=== PATIENT | male | born 2000 | race American Indian/Alaskan Native ===

== ENCOUNTER 2021-11-27 17:56 | Emergency (ER) | payer OTHER ==
[2021-11-27] MEDS ORDERED: IPRATROPIUM 0.02% NEBU 2.5 ML IH ONE (19:14)
[2021-11-27] MEDS ORDERED: ALBUTEROL 2.5 MG/3 ML NEBU IH ONE (19:14)
[2021-11-27] MEDS ORDERED: methylPREDNISolone Sod Succinate 125 MG/2 ML INJ IM ONE (19:15)
--- NOTE | 2021-11-27 19:41 | XRay Report ---
CHEST 2 VIEWS INDICATION / CLINICAL INFORMATION: cough, dyspnea, asthma. COMPARISON: None available. FINDINGS: SUPPORT DEVICES: None. HEART / MEDIASTINUM: No significant abnormality. LUNGS / PLEURA: No significant pulmonary or pleural abnormality. No pneumothorax. ADDITIONAL FINDINGS: No significant additional findings. IMPRESSION: 1. No acute findings. Signer Name: Brayan Barkley MD Signed: 11/27/2021 7:37 PM Workstation Name: [id number]
--- NOTE | 2021-11-27 20:25 | Emergency Department Report ---
ED Shortness of Breath HPI - General Chief Complaint: Adult Asthma Stated Complaint: SOB/ASTHMA Source: EMS Mode of arrival: Stretcher Limitations: No Limitations - History of Present Illness Initial Comments: Patient is a 20-year-old -[place] male with history of asthma who presents to the ED with complaint of acute onset persistent chest tightness, persistent dry cough, shortness of breath, wheezing with nasal and sinus congestion for the last 3 days. Patient states that he has a history of asthma but has never had any asthma attack in over 6 years and therefore he does not have any bronchodilator medications at home. Patient states that for the last 3 days they have been calling the EMS crew who have responded each time and gives him nebulizer treatments which helped briefly but the symptoms have continued to be persistent despite the treatment at home by the EMS crew. Patient denies fever, chills, nausea and vomiting, dizziness, syncope, chest pain, abdominal pain, diarrhea, sore throat or diffuse body aches and pains. MD Complaint: shortness of breath, cough, "asthma attack", anxiety -: Sudden, days(s) (3) Severity: severe Pain Scale: 7 Quality: aching, other (Tightness) Consistency: constant Improves With: bronchodilators Worsens With: nothing Known History Of: asthma Context: recent URI, allergen exposure, smoke/fume exposure (Cigarette smoking) Associated Symptoms: cough Treatments Prior to Arrival: none - Related Data Home Oxygen Therapy: No Previous Rx's Medication Instructions Recorded Last Taken Type Albuterol Sulfate [Proventil Hfa] 1 - 2 puff IH Q6H PRN #1 inh 11/27/21 Unknown Rx Azithromycin [Zithromax Z-GISELA] 250 mg PO DAILY #6 tab 11/27/21 Unknown Rx Benzonatate [Tessalon Perles] 100 mg PO Q8HR #30 cap 11/27/21 Unknown Rx Cetirizine HCl [Zyrtec 10mg tab] 10 mg PO DAILY #30 tab 11/27/21 Unknown Rx Montelukast [Singulair] 10 mg PO QPM #30 tablet 11/27/21 Unknown Rx methylPREDNISolone [Medrol 4MG 4 mg PO DAILY #21 tab 11/27/21 Unknown Rx DOSEPAK (21 tabs)] Allergies Allergy/AdvReac Type Severity Reaction Status Date / Time No Known Allergies Allergy Verified 11/27/21 18:04 ED Review of Systems ROS: Stated complaint: SOB/ASTHMA Other details as noted in HPI Constitutional: denies: chills, fever Eyes: denies: eye pain, eye discharge, vision change ENT: congestion. denies: ear pain, throat pain Respiratory: cough, shortness of breath, wheezing Cardiovascular: denies: chest pain, palpitations Endocrine: no symptoms reported Gastrointestinal: denies: abdominal pain, nausea, diarrhea Genitourinary: denies: urgency, dysuria Musculoskeletal: denies: back pain, joint swelling, arthralgia Skin: denies: rash, lesions Neurological: denies: headache, weakness, paresthesias Psychiatric: denies: anxiety, depression Hematological/Lymphatic: denies: easy bleeding, easy bruising ED Past Medical Hx - Past Medical History Previous Medical History?: Yes Hx Asthma: Yes - Medications Home Medications: Home Medications Medication Instructions Recorded Confirmed Last Taken Type Albuterol Sulfate [Proventil Hfa] 1 - 2 puff IH Q6H PRN #1 inh 11/27/21 Unknown Rx Azithromycin [Zithromax Z-GISELA] 250 mg PO DAILY #6 tab 11/27/21 Unknown Rx Benzonatate [Tessalon Perles] 100 mg PO Q8HR #30 cap 11/27/21 Unknown Rx Cetirizine HCl [Zyrtec 10mg tab] 10 mg PO DAILY #30 tab 11/27/21 Unknown Rx Montelukast [Singulair] 10 mg PO QPM #30 tablet 11/27/21 Unknown Rx methylPREDNISolone [Medrol 4MG 4 mg PO DAILY #21 tab 11/27/21 Unknown Rx DOSEPAK (21 tabs)] ED Physical Exam - General Limitations: No Limitations General appearance: alert, in no apparent distress - Head Head exam: Present: atraumatic, normocephalic, normal inspection - Eye Eye exam: Present: normal appearance, PERRL, EOMI Pupils: Present: normal accommodation - ENT ENT exam: Present: normal orophraynx, mucous membranes moist, TM's normal bilaterally, normal external ear exam, other (Grossly congested nasal passages) - Neck Neck exam: Present: normal inspection, full ROM. Absent: tenderness - Respiratory Respiratory exam: Present: wheezes (Diffuse coarse wheezes throughout). Absent: normal lung sounds bilaterally, respiratory distress, rales, rhonchi, stridor, chest wall tenderness, accessory muscle use, decreased breath sounds, prolonged expiratory, other - Cardiovascular Cardiovascular Exam: Present: regular rate, normal rhythm, normal heart sounds. Absent: systolic murmur, diastolic murmur, rubs, gallop - GI/Abdominal GI/Abdominal exam: Present: soft, normal bowel sounds. Absent: tenderness, guarding, rebound, hyperactive bowel sounds, hypoactive bowel sounds, mass, bruit - Extremities Exam Extremities exam: Present: normal inspection, full ROM, normal capillary refill. Absent: tenderness - Back Exam Back exam: Present: normal inspection, full ROM. Absent: tenderness, CVA tenderness (R), CVA tenderness (L), muscle spasm, paraspinal tenderness, vertebral tenderness - Neurological Exam Neurological exam: Present: alert, oriented X3, CN II-XII intact, normal gait, reflexes normal - Psychiatric Psychiatric exam: Present: normal affect, normal mood, anxious - Skin Skin exam: Present: warm, dry, intact, normal color. Absent: rash ED Course Vital Signs 11/27/21 11/27/21 18:01 19:55 Temperature 98.5 F Pulse Rate 96 H Pulse Rate [ 75 Anterior] Respiratory 19 Rate Respiratory 16 Rate [Anterior] Blood Pressure 133/80 [Left] O2 Sat by Pulse 98 Oximetry ED Medical Decision Making - Radiology Data Radiology results: report reviewed, [place] [address] XRay Report Signed Patient: BULL CASTANEDA MR#: [id number] 4 : 2000 Acct:[id number] Age/Sex: 20 / M ADM Date: 11/27/21 Loc: ED Attending Dr: Ordering Physician: YVROSE KRUEGER Date of Service: 11/27/21 Procedure(s): XR chest routine 2V Accession Number(s): [id number] cc: YVROSE KRUEGER Fluoro Time In Minutes: CHEST 2 VIEWS INDICATION / CLINICAL INFORMATION: cough, dyspnea, asthma. COMPARISON: None available. FINDINGS: SUPPORT DEVICES: None. HEART / MEDIASTINUM: No significant abnormality. LUNGS / PLEURA: No significant pulmonary or pleural abnormality. No pneumothorax. ADDITIONAL FINDINGS: No significant additional findings. IMPRESSION: 1. No acute findings. Signer Name: Brayan Barkley MD Signed: 11/27/2021 7:37 PM Workstation Name: [id number] Transcribed By: SB Dictated By: BRAYAN BARKLEY MD Electronically Authenticated By: BRAYAN BARKLEY MD Signed Date/Time: 11/27/211936 DD/ 35 TD/TT: - Medical Decision Making This is a 20-year-old -[place] male with history of asthma who presents to the ED with complaint of acute onset persistent chest tightness, persistent dry cough, shortness of breath, wheezing with nasal and sinus congestion for the last 3 days. Patient states that he has a history of asthma but has never had any asthma attack in over 6 years and therefore he does not have any bronchodilator medications at home. Patient states that for the last 3 days they have been calling the EMS crew who have responded each time and gives him nebulizer treatments which helped briefly but the symptoms have continued to be persistent despite the treatment at home by the EMS crew. In the ED, patient is alert and oriented x3 and is not in any distress. Patient is hemodynamically stable with oxygen saturation of 98% on room air. Patient received nebulizer treatments in the ED with albuterol and ipratropium, Solu-Medrol 125 mg intramuscular injection. Chest x-ray showed no acute cardiopulmonary abnormalities or pneumonitis. On reevaluation, patient wheezing resolved, patient felt better, oxygen saturation ranged from 98 to 100% on room air. Patient was discharged home on medications and advised to follow-up with his primary care physician in 5 to 7 days for reevaluation or return to the ED immediately if symptoms get worse. - Differential Diagnosis Asthma; bronchitis; URI; pneumonia; reactive airway disease; Critical care attestation.: If time is entered above; I have spent that time in minutes in the direct care of this critically ill patient, excluding procedure time. ED Disposition Clinical Impression: Acute bronchitis with asthma with acute exacerbation, Acute upper respiratory infection Disposition: HOME / SELF CARE / HOMELESS Is pt being admited?: No Does the pt Need Aspirin: No Condition: Stable Instructions: Upper Respiratory Infection, Adult, [id number], Cough, Adult, [id number], Acute Bronchitis, Adult, [id number], Asthma, Adult, [id number], Smoking Tobacco Information, Adult Additional Instructions: Chest x-ray showed no acute cardiopulmonary abnormalities or pneumonitis. Therefore take medications as advised, drink plenty of fluids and follow-up with your primary care physician in 5 to 7 days for reevaluation. Return to the ED immediately if symptoms get worse. Consider quitting tobacco abuse to improve on your symptoms. Prescriptions: methylPREDNISolone [Medrol 4MG DOSEPAK (21 tabs)] 4 mg PO DAILY #21 tab Albuterol Sulfate [Proventil Hfa] 1 - 2 puff IH Q6H PRN #1 inh PRN Reason: Shortness Of Breath Montelukast [Singulair] 10 mg PO QPM #30 tablet Benzonatate [Tessalon Perles] 100 mg PO Q8HR #30 cap Azithromycin [Zithromax Z-GISELA] 250 mg PO DAILY #6 tab Cetirizine HCl [Zyrtec 10mg tab] 10 mg PO DAILY #30 tab Referrals: ERASMO TO MD [Primary Care Provider] - 3-5 Days Time of Disposition: 20:27 Print Language: DIVEHI
[2021-11-27 20:52] VITALS: BP 128/76
== END 2021-11-27 20:53 | disposition home or self-care (01) ==
LOC: ED 17:56
DX: J45.901 Unspecified asthma with (acute) exacerbation (principal); J06.9 Acute upper respiratory infection, unspecified
CPT/HCPCS: 71046; 94644; 96372; 99283; J2930